=== PATIENT | male | born 1945 | race Caucasian/White ===

== ENCOUNTER 2020-07-01 12:45 | Outpatient (REF) | payer MEDICARE, SELFPAY ==
[2020-07-01 14:23] LABS: Hematocrit 26.6 % (42-52); Hemoglobin 8.6 g/dl (14.0-18.0); Mean Corpuscular HGB Conc 32.3 g/dl (31.0-36.0); Mean Corpuscular Hemoglobin 31.7 pg (27.0-33.0); Mean Corpuscular Volume 98.2 fL (80-98); Mean Platelet Volume 10.5 fL (9.4-12.4); Platelet Count 226 X10*3/uL (160-400); Red Blood Count 2.71 X10*6/uL (4.60-5.80); Red Cell Distribution Width 14.9 % (11.0-16.0); White Blood Count 7.8 X10*3/uL (4.8-10.8)
[2020-07-01 14:50] LABS: Anion Gap 17 (12-20); Blood Urea Nitrogen 81 mg/dL (9-16); Calcium 8.6 mg/dL (8.4-10.2); Carbon Dioxide 22 mmol/L (22-29); Chloride 106 mmol/L (96-108); Estimated Glomerular Filt Rate 6; Iron 134 mcg/dL (45-160); Percent Iron Saturation 49 % (15-50); Phosphorus 6.6 mg/dL (2.7-4.5); Potassium 4.3 mmol/L (3.3-5.1); Sodium 141 mmol/L (135-145); Total Iron Binding Capacity 271 mcg/dL (228-428); Unsaturated Iron Binding 137 ug/dL
[2020-07-01 14:54] LABS: Vitamin D 25-OH Total 25.7 ng/mL (>30)
[2020-07-02 16:12] LABS: Calcium (PTHI) 8.4 mg/dL (8.6-10.3); PTHI 168 pg/mL (14-64)
== END 2020-07-01 12:46 | disposition home or self-care (01) ==
LOC: HO.HMGCLDS 12:45
PROVIDERS: PCP Nurse Practitioner Family; Visit Provider Internal Medicine Nephrology
DX: N18.5 Chronic kidney disease, stage 5 (principal)
CPT/HCPCS: 36415; 80051; 82306; 82310; 82565; 83540; 83970; 84100; 84520; 85027

== ENCOUNTER 2021-01-11 13:43 | Outpatient (REF) | payer MEDICARE, SELFPAY ==
--- NOTE | 2021-01-11 16:15 | MHC.AU.AEV ---
Adult Audiological Evaluation Date of Visit: 01/11/21 Reason for Appointment: Audiological evaluation due to concern for decreased hearing. Mr. Boogie feels that he hears well, but his daughter notes that he often misses what is said and it has to be repeated. She feels he is struggling to hear. Mr. Boogie notes that he used to be a otr tanker truck driver, and was told at a DOT physical that he couldn't hear anything . Does patient feel they have a hearing loss?: Unsure Has hearing been tested previously?: Yes Previous Hearing Test Results: Had screenings in the past for work, notes that he was told he couldn't hear anything and had hearing loss. Hearing Handicap Inventory HHIE SCORE: 6 Based on HHIE score, patient has: No perceived hearing handicap Ear History: Family History of Hearing Loss?: Yes: Mother History of Ear Wax Buildup: Both Ears Bothersome Tinnitus/Ringing/Noises in Ears: Both Ears History of occupational noise exposure?: Yes: [employer] truck driver, 40 years History: History: Yes Branch: [employer] Years in : 2 years Medical History: Medical History: Anemic, appendicitis 38 years ago, Acute kidney disease 8 months ago, kidney stones 30 years ago Allergies: Wheat, soy, pancakes, some blood pressure pills, canola oil, balsamic, teriyaik sauce, cheese, potato peels Medication List: Sodium bicarbonate 650 mg 2 tables twice a day, Sevelamer Carbonate 800 mg 3x daily, Carvedilol 3.125 mg tablet twice a day, Vitamin B-12, Vitamin D, Zinc, Vitamin E, Magnesium, Aspirin 81 mg, Cholecalciferol 2,000 units daily, Otoscopy: Right Ear: Unremarkable Left Ear: Unremarkable Tympanometry: Tympanometry performed due to: To assess integrity of the middle ear system Right Ear: Normal Middle Ear System (Type A) Left Ear: Normal Middle Ear System (Type A) Hearing Evaluation: Transducer(s) Used: Insert Earphones, Bone Conduction Method: Conventional Audiometry Stimuli Used: Pure Tones Right Ear: Description of Hearing: Normal hearing at 250 Hz, sloping to a mild to severe sensorineural hearing loss from 500-8000 Hz. Left Ear: Description of Hearing: Normal hearing at 250 Hz, sloping to a moderate to severe sensorineural hearing loss from 500-8000 Hz. Speech Recognition Threshold (SRT): Method Used: Monitored Live Voice Stimuli Used: Spondee Words Right Ear: 45 dBHL Left Ear: 45 dBHL Word Discrimination: Method: Recorded Lists Word Lists Used: NU-6 Right Ear: 72% at 85 dBHL, 84% at 90 dBHL Left Ear: 40% at 85 dBHL, 40% at 90 dBHL Binaural: 84% at 90 dBHL Recommendations: Audiological re-evaluation in one year. Trial with amplification is recommended. Given the type and degree of hearing loss, binaural amplification is highly recommended. Discussed hearing aids briefly with Mr. Boogie and his daughter. They will reach out to [facility] and to his health insurance company in regards to hearing aid benefits. He was welcomed to return to further discuss hearing aids if he decides he would like to pursue hearing aids through our clinic. Diagnosis: Primary Diagnosis: H90.3 Bilateral Sensorineural Hearing Loss Services Performed: Comprehensive Audiological Evaluation (CPT 63058) Tympanometry (CPT 36025) Signature: Provider: Pato Kay, CCC-A
== END 2021-01-11 13:44 | disposition home or self-care (01) ==
LOC: HO.SH 13:43
PROVIDERS: Visit Provider Nurse Practitioner Family
DX: H91.93 Unspecified hearing loss, bilateral (principal)
CPT/HCPCS: 92557; 92567